=== PATIENT | female | born 1990 | race Caucasian/White ===

== ENCOUNTER 2018-02-19 18:26 | Emergency (ER) | payer OTHER, BC ==
[~2018-02-19] VITALS: Ht 160 cm; Wt 93.0 kg
[~2018-02-19 18:26] MED LIST: EXCEDRI3 PO; ZITHROMAX250 MG OR
[2018-02-19 20:37] VITALS: BP 112/71
== END 2018-02-19 20:37 | disposition home or self-care (01) | DRG 563 ==
LOC: ED 18:26
DX: S93.691A Other sprain of right foot, initial encounter (principal); X50.1XXA Overexertion from prolonged static or awkward postures, initial encounter; Y93.01 Activity, walking, marching and hiking; Y92.219 Unspecified school as the place of occurrence of the external cause